=== PATIENT | female | born 1960 | race Caucasian/White ===

== ENCOUNTER 2021-01-13 04:13 | Emergency (ER) | payer BC ==
[~2021-01-13] VITALS: Ht 167.6 cm; Wt 95.3 kg
[~2021-01-13 04:13] MED LIST: IBUPROFEN 600600 M1 PO; KEFLEX250 M1 PO; LEXAPRO 10 MG T10 M1 PO; MOBIC7.5 MG PO; ZETIA10 MG PO
[2021-01-13] MEDS ORDERED: LIPITOR 20 MG T20 M1 PO (04:26)
[2021-01-13 04:40] LABS: ABSOLUTE EOSINOPHILS 0.4 thou/uL (0.0-0.7); ABSOLUTE LYMPHOCYTES 1.5 thou/uL (0.8-5.3); ABSOLUTE MONOCYTES 0.4 thou/uL (0.0-1.2); ABSOLUTE NEUTROPHILS 2.8 thou/uL (1.6-8.1); EOSINOPHILS 7.7 %; HEMATOCRIT 41.3 % (37.0-47.0); HEMOGLOBIN 13.5 gm/dL (12.0-15.0); MCH 28.6 pg (26.0-34.0); MCHC 32.7 g/dL (28.0-37.0); MCV 87.4 fL (80.0-100.0); MONOCYTES 8.3 %; MPV 7.6 fl. (7.2-11.1); NUCLEATED RBCS 0 /100WBC; PLATELET COUNT* 336 thou/uL (150-400); RBC 4.72 mil/uL (4.20-5.00); WBC 5.2 thou/uL (4.0-11.0)
[2021-01-13 04:50] LABS: PROTIME 10.4 Seconds (9.20-11.50)
[2021-01-13 04:55] LABS: CALCIUM 8.4 mg/dL (8.5-10.1); CREATININE 0.7 mg/dL (0.6-1.3)
[2021-01-13 04:59] LABS: ALBUMIN 3.4 g/dL (3.4-5.0); MAGNESIUM 2.2 mg/dL (1.8-2.4); TOTAL BILIRUBIN 0.5 mg/dL (<0.1-1.0); TOTAL PROTEIN 7.1 g/dL (6.4-8.2)
[2021-01-13 05:36] LABS: URINE BILIRUBIN NEGATIVE (Negative); URINE BLOOD 1+ (Negative); URINE CLARITY CLEAR; URINE COLOR YELLOW; URINE GLUCOSE-RANDOM NEGATIVE (Negative); URINE KETONES NEGATIVE (Negative); URINE LEUKOCYTES-REFLEX NEGATIVE (Negative); URINE NITRITE-REFLEX NEGATIVE (Negative); URINE PROTEIN NEGATIVE (Negative); URINE SPECIFIC GRAVITY >= 1.030 (1.005-1.030); URINE UROBILINOGEN 0.2 E.U./dl (0.2-1.0)
[2021-01-13 05:50] LABS: CASTS None Seen /LPF (None Seen); CRYSTALS None Seen /LPF (None Seen); MUCUS 0-3 Light strn/LPF (None Seen); SQUAMOUS 4-10 Moderate /LPF (0-3); URINE RBC 3-10 Few /HPF (0-2); URINE WBC-REFLEX 0-5 Rare /HPF (0-5)
[2021-01-13] MEDS ORDERED: PEPCID20 MG PO (06:57)
[2021-01-13] MEDS ORDERED: ZOFRAN ODT4 MG PO (06:57)
[2021-01-13 07:33] VITALS: BP 122/66
--- NOTE | 2021-01-13 13:03 | EKG ---
[place] [address] ELECTROCARDIOGRAM REPORT Name: MARGARET GAONA Room: [facility]#: [id number] Admission: 01/13/21 Attend Phys: Discharge: 01/13/21 Date of : 60 Date of Service: 01/13/21418 Report #: [id number] THIS REPORT FOR: //name// [facility] ED Test Date: 2021-01-13 Test Time: 04:19:03 Pat Name: MARGARET JAQUEZISAAC Department: Room: Gender: F [employer]: : [id number] Requested By: Jennifer White Order Number: [id number] MD: Barak Jernigan Measurements Intervals [place] Rate: 89 P: 58 HI: 150 QRS: 26 QRSD: 94 T: 49 QT: 364 QTc: 443 Interpretive Statements Sinus rhythm No previous ECG available for comparison Electronically Signed On 01-13-2021 13:02:53 CDT by Barak Jernigan [email or web address] <ELECTRONICALLY SIGNED> By: Barak Jernigan MD, [facility] 01/13/21 1302 0419 0419 Barak Jernigan MD, FACC /EPI
== END 2021-01-13 07:35 | disposition home or self-care (01) ==
LOC: M.ERS 04:13
PROVIDERS: Emergency Medicine
DX: R07.89 Other chest pain (principal); R11.0 Nausea; Z90.89 Acquired absence of other organs; Z90.711 Acquired absence of uterus with remaining cervical stump; Z79.899 Other long term (current) drug therapy